=== PATIENT | female | born 1970 | race Hispanic/Latino ===

== ENCOUNTER → 2017-10-18 | Outpatient (CLI) | payer BC ==
--- NOTE | 2017-10-18 18:42 | Diagnostic Imaging Report ---
PROCEDURE:ABDOMEN COMP INCL UPR OR DECUB: INDICATION:Tightness and bloating COMPARISON:None. FINDINGS: Nonobstructive bowel gas pattern. No dilated, air-filled loops of bowel. No pneumoperitoneum. No abnormal calcifications project over the renal shadows, expected course of the ureters or bladder. Lobulated metallic density projecting in the mid upper pelvis only seen in the upright view is likely external to the patient, as it is not seen in this supine view. Lung bases are clear. No acute bony abnormalities. CONCLUSION: Nonobstructive bowel gas pattern. Cali Sheffield M.D. Dictated by: Cali Sheffield M.D. on 10/18/2017 at 18:47 Electronically approved by: Cali Sheffield M.D. on 10/18/2017 at 18:47
== END ==
LOC: RAD 09:55
PROVIDERS: ATTEND Internal Medicine Gastroenterology
DX: R10.13 Epigastric pain (principal)